=== PATIENT | female | born 1990 | race African-American/Black ===

== ENCOUNTER 2017-09-11 09:41 | Outpatient (CLI) | payer OTHER ==
--- NOTE | 2017-09-11 12:39 | ULT ---
OB ULTRASOUND: DATE: 09/11/17. HISTORY: Normal after 1st trimester. Evaluate size and dates. FINDINGS: There is a single intrauterine gestation in cephalic presentation. Cardiac Doppler demonstrates feta l heart tones with a heart rate of 155 b.p.m. The placenta is located posteriorly without evid ence of placenta previa. There is shadowing in the region of the lower uterine segment and the regio n of the cervix, as a result cervical length is unable to be evaluated. There is a normal amount of amniotic fluid with an amniotic fluid index of 15.9 cm. MEASUREMENTS: Abdominal circumference 12.73 cm, 18 weeks 2 days Femur length 2.63 cm, 18 weeks The head circumference and biparietal diameter are unable to be evaluated due to position of the feta l head and limited visualization. In addition, the cerebellum and lateral ventricles are unable to b e evaluated due to inadequate visualization of the head. The estimated gestational age by ultrasound, although limited measurements were able to be obtained, is 18 weeks and 1 day with an BO on 02/11/18. Gestational age by the last menstrual period is 18 we eks and 2 days. Estimated weight is unable to be obtained due to limited measurements. As noted above, head structures are not well delineated on this exam and followup evaluation is suggested. A 4-chamber heart is unable to be delineated. The stomach, bilateral kidneys, urinary bladder, and v isualized portions of the spine demonstrate a normal sonographic appearance. Cord insertion wa s visualized and has a normal sonographic appearance. Three-vessel cord is not delineated on this ex am. IMPRESSION: 1. Limited examination and head structures are unable to be evaluated. Followup evaluation in 4 weeks is suggested. 2. Single intrauterine gestation in cephalic presentation with heart tones documented. Gestat ional age by ultrasound is approximately 18 weeks and 1 day with estimated date of delivery on . 3. weight unable to be determined as the head circumference and biparietal diameter were unabl e to be obtained. This can be reevaluated on followup exam. POS: [facility]
== END 2017-09-11 09:42 | disposition home or self-care (01) ==
LOC: ULT 09:41
PROVIDERS: ATTEND Family Medicine
DX: Z34.91 Encounter for supervision of normal pregnancy, unspecified, first trimester (principal); Z3A.18 18 weeks gestation of pregnancy
CPT/HCPCS: 76805

== ENCOUNTER 2018-02-08 03:27 | Inpatient (IN) | payer OTHER ==
[2018-02-08 04:07] VITALS: BMI 25.8
[2018-02-08] MEDS ORDERED: Acetaminophen/Codeine 30-300mg Tablet PO PRN (04:39)
[2018-02-08] MEDS ORDERED: Acetaminophen 500 MG TAB PO PRN (04:39)
[2018-02-08] MEDS ORDERED: HYDROcodone/Acetaminophen 5/325 mg Tablet PO PRN ×2 (04:39→15:41)
[2018-02-08] MEDS ORDERED: Ibuprofen 800 MG TAB PO PRN (04:39)
[2018-02-08] MEDS ORDERED: Ondansetron PF 4 MG/2 ML Vial IVP PRN ×3 (04:39→15:41)
[2018-02-08] MEDS ORDERED: Lidocaine 1% (PF) 30 ML VIAL SC PRN (04:39)
[2018-02-08] MEDS ORDERED: Butorphanol Tartrate 1 MG/ML VIAL SLOW IVP PRN (04:39)
[2018-02-08] MEDS ORDERED: Misoprostol 200 MCG TAB PR PRN (04:39)
[2018-02-08] MEDS ORDERED: Promethazine HCl 25 MG/ML VIAL IM PRN ×2 (04:39→06:24)
[2018-02-08] MEDS ORDERED: Fentanyl 4 mcg/Bup 0.1% Cadd 100 ML ONE (05:02)
[2018-02-08 05:36] LABS: Hemoglobin 10.8 g/dL (12.0-16.0); Mean Corpuscular HGB CONC 33.7 g/dL (32.0-36.0); Mean Corpuscular Hemoglobin 33.6 pg (27.0-31.0); Mean Corpuscular Volume 99.7 fL (78.0-98.0); Mean Platelet Volume 6.7 fL (7.4-10.4); Platelet Count 318 thou/uL (130-400); Red Blood Cell (RBC) Count 3.22 mill/uL (4.20-5.40); White Blood Cell (WBC) Count 6.6 thou/uL (4.8-10.8)
[2018-02-08 06:05] LABS: HBSAg Index 0.21 S/CO (0-0.99); Hep B Surf Ag Non-Reactive S/CO (NonReactive); Syphilis Antibody Nonreactive (Nonreactive); Syphilis Antibody Index 0.03 S/CO (<1.00 Non-Reactive)
[2018-02-08] MEDS ORDERED: ePHEDrine/0.9% NaCl/PF SYRINGE 50 mg/10 ml SLOW IVP PRN (06:24)
[2018-02-08] MEDS ORDERED: Lactated Ringer's 500 ML IV PRN (06:24)
[2018-02-08] MEDS ORDERED: Eucerin (Mineral Oil/Petrolatum,White) 30 gm Jar TOP PRN (06:24)
[2018-02-08] MEDS ORDERED: Naloxone HCl 0.4 mg/ml Vial IVP PRN ×2 (06:24)
[2018-02-08] MEDS ORDERED: diphenhydrAMINE 50 MG/ML VIAL IVP PRN (06:24)
[2018-02-08] MEDS ORDERED: Acetaminophen 325 MG TAB PO PRN (06:24)
[2018-02-08] MEDS ORDERED: Communication Order-Pharmacy FS SCH (06:30)
[2018-02-08] MEDS ORDERED: Fentanyl 4 mcg/Bupivacaine 0.1% Cassette 100 ML EPIDURAL SCH (06:30)
[2018-02-08] MEDS: Lactated Ringer's 1,000 ML IV SCH ×2 (07:30→16:20)
[2018-02-08] MEDS: NS / Oxytocin 40 units/1000ml 1,000 ML IV PRN ×2 (13:20→13:49)
[2018-02-08] MEDS ORDERED: Preparation H Ointment 28 GM TUBE PR PRN (15:41)
[2018-02-08] MEDS ORDERED: Milk Of Magnesia 30 ML UDCUP PO PRN (15:41)
[2018-02-08] MEDS ORDERED: Benzocaine/Menthol 20-0.5% 60 ML CAN TOP PRN (15:41)
[2018-02-08] MEDS ORDERED: Bisacodyl 10 MG SUPP PR PRN (15:41)
[2018-02-08] MEDS ORDERED: NS / Oxytocin 40 units/1000ml 1,000 ML IV SCH (15:41)
[2018-02-08] MEDS ORDERED: diphenhydrAMINE 25 MG CAP PO PRN (15:41)
[2018-02-08] MEDS ORDERED: Lanolin Ointment 7 GM TUBE TOP PRN (15:41)
[2018-02-08] MEDS: Ferrous Sulfate 325 MG TAB PO SCH (16:19)
[2018-02-08] MEDS: Ibuprofen 800 MG TAB PO SCH ×2 (16:19→21:17)
[2018-02-08] MEDS: Prenatal Vitamin 1 TAB PO SCH (17:22)
[2018-02-08] MEDS: Docusate Calcium (SURFAK) 240 MG CAP PO SCH ×2 (17:22→21:17)
[2018-02-08] MEDS: Acetaminophen/Codeine 30-300mg Tablet PO PRN (17:26)
[2018-02-09] MEDS: Acetaminophen/Codeine 30-300mg Tablet PO PRN ×2 (01:22→14:06)
[2018-02-09] MEDS: Ibuprofen 800 MG TAB PO SCH ×3 (06:29→21:30)
[2018-02-09] MEDS: Ferrous Sulfate 325 MG TAB PO SCH ×2 (08:12→14:07)
[2018-02-09] MEDS: Prenatal Vitamin 1 TAB PO SCH (09:24)
[2018-02-09] MEDS: Docusate Calcium (SURFAK) 240 MG CAP PO SCH ×2 (09:24→21:30)
[2018-02-10] MEDS: Ibuprofen 800 MG TAB PO SCH (05:31)
[2018-02-10 08:52] VITALS: BP 123/72; TEMP 98.1
[2018-02-10] MEDS: Ferrous Sulfate 325 MG TAB PO SCH (09:32)
[2018-02-10] MEDS: Docusate Calcium (SURFAK) 240 MG CAP PO SCH (09:36)
[2018-02-10] MEDS: Prenatal Vitamin 1 TAB PO SCH (09:36)
[2018-02-10] MEDS: Acetaminophen/Codeine 30-300mg Tablet PO PRN (09:42)
[2018-02-10] MEDS ORDERED: Lidocaine 2% MPF 10 ML AMP (For Epidural Use) ONE (14:46)
== END 2018-02-10 11:56 | disposition home or self-care (01) | DRG 807 ==
LOC: L&D/OP 03:27 → L&D 04:38 → 3SE 16:18
PROVIDERS: ADMIT Family Medicine; ATTEND Family Medicine
PROC: 10E0XZZ Delivery of Products of Conception, External Approach (ICD-10-PCS; principal; 2018-02-08)
PROC: 0KQM0ZZ Repair Perineum Muscle, Open Approach (ICD-10-PCS; 2018-02-08)
DX: O70.1 Second degree perineal laceration during delivery (principal); Z37.0 Single live birth; Z3A.39 39 weeks gestation of pregnancy
CPT/HCPCS: 36415; 85027; 86780; 86850; 86900; 86901; 87340; 99285; J2001